=== PATIENT | female | born 1990 | race Caucasian/White ===

== ENCOUNTER 2022-07-17 14:06 | Outpatient (CLI) | payer OTHER, SELFPAY ==
[2022-07-17 22:44] LABS: Hepatitis B Surface Antigen* Negative (Negative)
[2022-07-17 22:55] LABS: HIV 1/2/P24 Combo Screen* Negative (Negative)
[2022-07-17 23:02] LABS: Hepatitis C Virus Antibody* Negative (Negative)
[2022-07-19 20:26] LABS: Rapid Plasma Reagin (RPR) Non Reactive (Non Reactive)
[2022-07-20 03:26] LABS: Rubella Antibody IgG 32.2 IU/mL
== END 2022-07-17 14:07 | disposition home or self-care (01) ==
PROVIDERS: Visit Provider Registered Nurse
DX: Z34.91 Encounter for supervision of normal pregnancy, unspecified, first trimester (principal)
CPT/HCPCS: 86592; 86703; 86762; 86787; 86803; 86850; 86900; 86901; 87086; 87340; 87491; 87591

== ENCOUNTER 2022-10-09 09:33 | Outpatient (CLI) | payer OTHER, SELFPAY ==
--- NOTE | 2022-10-09 09:15 | CRLHL7_ITS ---
For Patients: As a result of the Century Cures Act, medical imaging exams and procedure reports are released immediately into your electronic medical record. You may view this report before your referring provider. If you have questions, please contact your health care provider. INDICATION: Evaluate anatomy. COMPARISON: None. TECHNIQUE: Real time cruz scale imaging of the fetus was performed. FINDINGS: Sonographic imaging demonstrates a single living intrauterine gestation. Fetus demonstrates a regular cardiac rate of 152 beats per minute. The fetus demonstrated multiple positions throughout the examination. The placenta lies anteriorly without evidence of placenta previa. The placental tip is 3.2 cm away from the internal cervical os which is closed. Amniotic fluid volume appears normal. Single deepest vertical pocket: 7.1 cm. The cervix is closed and measures 4.2 cm in length. The composite ultrasound gestational age is calculated at 21 weeks 2 days with an estimated sonographic due date of February 17, 2023. The estimated weight is 435 grams which lies at the 45th percentile. The following biometric measurements were obtained: Biparietal diameter: 4.9 cm/20 weeks 5 days 18% Head circumference: 18.8 cm/21 weeks 1 day 20% Abdominal circumference: 17.6 cm/22 weeks 4 days 73% Femur length: 3.4 cm/20 weeks 5 days 14% The HC/AC ratio measures: 1.07 range (1.06-1.24) On anatomic survey, there is a normal appearance of the cerebral ventricles, cisterna magna and cerebellum. The nose, lips, and facial profile appear normal. The cervical, thoracic and lumbar spine are well visualized and appear normal. There is a normal four-chamber heart view and the left and right ventricular outflow tracts appear normal. diaphragm, stomach, kidneys and bladder appear normal. There is a normal three-vessel cord and cord insertion site. The four extremities appear normal. Please note there is an anatomic abnormality of the placenta. Although the placenta is located anteriorly and toward the right side, there is an appearance compatible with a circumvallate placenta. By history the patient may have been previously with this entity. IMPRESSION: Normal OB ultrasound exam with concordance of clinical and sonographic dating. No intrinsic abnormalities noted on anatomic survey. However, please note there is a circumvallate placenta. Dictated by Alphonso Palacios MD @ 10/09/2022 11:19:33 AM (Electronically Signed)
== END 2022-10-09 09:34 | disposition home or self-care (01) ==
PROVIDERS: Visit Provider Registered Nurse
DX: Z34.92 Encounter for supervision of normal pregnancy, unspecified, second trimester (principal); Z3A.21 21 weeks gestation of pregnancy
CPT/HCPCS: 76805

== ENCOUNTER 2022-11-27 11:09 | Outpatient (CLI) | payer OTHER, SELFPAY | END 2022-11-27 11:10 | disposition home or self-care (01) | LOC: NFLDREF 11-30 05:49 | PROVIDERS: Visit Provider Registered Nurse | DX: Z34.93 Encounter for supervision of normal pregnancy, unspecified, third trimester (principal); Z3A.28 28 weeks gestation of pregnancy | CPT/HCPCS: 86592 ==

== ENCOUNTER 2022-12-25 09:09 | Outpatient (CLI) | payer OTHER, SELFPAY ==
--- NOTE | 2022-12-25 09:15 | CRLHL7_ITS ---
For Patients: As a result of the Century Cures Act, medical imaging exams and procedure reports are released immediately into your electronic medical record. You may view this report before your referring provider. If you have questions, please contact your health care provider. INDICATION: HX OF COVID, Circumvallate PLACENTA COMPARISON: 10/09/2022 TECHNIQUE: Real time cruz scale imaging of the fetus was performed. FINDINGS: Sonographic imaging demonstrates a single living intrauterine gestation. Fetus demonstrates a regular cardiac rate of 168 beats per minute. Fetus has a breech position. The placenta lies anteriorly. Amniotic fluid volume appears normal and there is a single deepest vertical pocket: 8.0 cm. The estimated weight is 1974gm which lies at the 36th %. On the prior OB ultrasound exam dated 10/09/2022 the estimated weight was at the 45th%. BPD 29th percentile. HC 39th percentile. AC 53rd percentile. FL 18th percentile. The HC/AC ratio measures 1.06 range (0.96-1.12). IMPRESSION: Sonographic gestational age 32 weeks 4 days and sonographic due date 02/15/2023. Estimated weight 36th percentile. Abdominal circumference 53rd percentile. Dictated by Emil Glass MD @ 12/25/2022 12:14:26 PM (Electronically Signed)
== END 2022-12-25 09:10 | disposition home or self-care (01) ==
LOC: US 09:09
PROVIDERS: PCP Registered Nurse; Visit Provider Registered Nurse
DX: U07.1 COVID-19 (principal); O43.113 Circumvallate placenta, third trimester; Z3A.32 32 weeks gestation of pregnancy
CPT/HCPCS: 76816

== ENCOUNTER 2023-08-13 11:30 | Outpatient (CLI) | payer OTHER, SELFPAY | END 2023-08-13 11:31 | disposition home or self-care (01) | PROVIDERS: PCP Registered Nurse; Visit Provider Family Medicine | DX: Z13.220 Encounter for screening for lipoid disorders (principal); Z13.228 Encounter for screening for other metabolic disorders | CPT/HCPCS: 80053; 80061 ==

== ENCOUNTER 2023-09-01 10:45 | Outpatient (RCR) | payer OTHER, SELFPAY | END 2023-12-30 23:59 | disposition home or self-care (01) | PROVIDERS: PCP Registered Nurse; Visit Provider Registered Nurse | DX: M62.08 Separation of muscle (nontraumatic), other site (principal); R27.8 Other lack of coordination; N39.3 Stress incontinence (female) (male); Z51.89 Encounter for other specified aftercare | CPT/HCPCS: 97110; 97112; 97140; 97161; 97535 ==